=== PATIENT | male | born 1990 | race Caucasian/White ===

== ENCOUNTER 2017-03-15 23:13 | Emergency (ER) | payer MEDICAID ==
[2017-03-16] MEDS ORDERED: IBUPROFEN 800 MG TABLET PO STA (00:21)
[2017-03-16] MEDS ORDERED: IBUPROFEN 800 MG TABLET PO ONE (00:23)
--- NOTE | 2017-03-16 00:35 | XRAY Preliminary Report ---
Exam: XR Elbow 3 View LT IMPRESSION: 1. No acute fracture or dislocation seen. [facility] SITE ID: [id number]
--- NOTE | 2017-03-16 00:38 | XRAY Report ---
EXAM: LEFT ELBOW RADIOGRAPHY EXAM DATE: 03/16/2017 12:24 AM. CLINICAL HISTORY: Pain after injury. Left medial olecranon contusion. COMPARISON: None. TECHNIQUE: 3 views. FINDINGS: Bones: No acute fracture seen. Joints: No dislocation. Joint spaces appear intact. No obvious joint effusion. Soft Tissues: Soft tissue swelling. IMPRESSION: 1. No acute fracture or dislocation seen. [facility] Referring Provider Line: [phone] SITE ID: [id number]
--- NOTE | 2017-03-16 00:50 | ED Physician Documentation ---
History of Present Illness - Stated complaint Stated Complaint: L ARM PX - Chief complaint Chief Complaint: Trauma Ext - History obtained from History obtained from: Patient - Additonal information Additional information: Patient is a 26-year-old [id number] male with a previous history of left elbow surgery when he was a child which looks like a supracondylar fracture repair who presents with a complaint of left medial condyle pain after striking it with Accidentally tonight. He complains of pain to the elbow at the contusion site. Range of motion is normal. There is no other injury cited. Movement makes the pain worse and relaxation alleviates the pain that happened shortly prior to arrival. Review of systems: For pertinent positive and negatives in the review of systems please see history of present illness. Otherwise all other systems have been reviewed and are negative. Dragon disclaimer: Parts of this medical record were created using voice recognition technology. Because of the inherent limitations of this system occasional same sounding word substitutions do occur and persist despite proofreading. Please read the document for context. Review of Systems Musculoskeletal: reports: Extremity pain, Joint pain PD PAST MEDICAL HISTORY - Past Medical History Past Medical History: No - Past Surgical History Past Surgical History: Yes Ortho: Other - Present Medications Home Medications: Ambulatory Orders Medication Instructions Recorded Confirmed Ibuprofen 800 mg PO TID PRN #16 tablet 03/16/17 - Allergies Allergies/Adverse Reactions: Allergies Allergy/AdvReac Type Severity Reaction Status Date / Time No Known Drug Allergies Allergy Verified 03/15/17 23:24 - Social History Does the pt smoke?: Yes Smoking Status: Current every day smoker Does the pt drink ETOH?: Yes Does the pt have substance abuse?: No Substance Use and Type: Marijuana - Immunizations Immunizations are current?: Yes - POLST Patient has POLST: No PD ED PE NORMAL - General General: Alert and oriented X 3, No acute distress, Well developed/nourished - HEENT HEENT: Atraumatic - Derm Derm: Normal color, Warm and dry - Extremities Extremities: Other (Minimal tenderness without obvious bruising to the medial olecranon) Results - Vitals Vitals: Vital Signs - 24 hr 03/15/17 23:18 Temperature 37.1 C Heart Rate 76 Respiratory 14 Rate Blood Pressure 138/73 H O2 Saturation 97 Oxygen O2 Source Room air PD MEDICAL DECISION MAKING - ED course ED course: Patient is a healthy 26-year-old male with a previous left elbow surgery when as a child who presents with contusion to the medial condyle of his elbow after accidentally hitting it with a stick. On examination Range of motion is normal. There is no obvious discoloration or soft tissue swelling other than the old bony prominence secondary to previous injury in the past. Radiographically there is no abnormality and clinically I do not see anything else other than perhaps a very mild bruise. At this point in time he will be discharged home with recommendation to rest it, ice it as needed and take nonsteroidal anti-inflammatories. Disposition: To home Clinical impression: 1. Left elbow contusion Departure - Departure Disposition: Home, Self Care Clinical Impression: Elbow injury Qualifiers: Encounter type: initial encounter Laterality: left Qualified Code(s): S59.902A - Unspecified injury of left elbow, initial encounter Condition: Good Instructions: Bruises Contusions Prescriptions: Ibuprofen 800 mg PO TID PRN #16 tablet PRN Reason: Pain
[2017-03-16 00:57] VITALS: BP 113/53
== END 2017-03-16 00:55 | disposition home or self-care (01) ==
LOC: ED 23:13
DX: S59.902A Unspecified injury of left elbow, initial encounter (principal); W22.8XXA Striking against or struck by other objects, initial encounter; Y93.89 Activity, other specified; Z98.890 Other specified postprocedural states; F17.200 Nicotine dependence, unspecified, uncomplicated
CPT/HCPCS: 73080; 99283; A9270